=== PATIENT | female | born 1975 | race Two or more races ===

== ENCOUNTER 2016-07-25 05:57 | Inpatient (IN) | payer MEDICAID ==
[~2016-07-25 05:57] MED LIST: IV START KIT ONE; LACTATED RINGERS 1,000 ML ONE
[2016-07-25] MEDS ORDERED: CEFAZOLIN SODIUM 2 GRAM DUPLEX 2 G in Premix (D5W) 50 ml 1 EACH IV PRN (06:15)
[2016-07-25] MEDS ORDERED: LACTATED RINGERS 1,000 ML IV SCH ×2 (06:15→07:45)
[2016-07-25] MEDS ORDERED: LIDOCAINE 1% 2 ML VIAL ID PRN (06:15)
[2016-07-25] MEDS ORDERED: LIDOCAINE 1% (PRES FREE) 5 ML VIAL ONE (06:16)
[2016-07-25] MEDS ORDERED: CEFAZOLIN SODIUM 2 GRAM PREMIX 100 ML IV ONE (06:16)
[2016-07-25] MEDS ORDERED: MORPHINE SULFATE (DURAMORPH) 1 MG/ML 10ML AMP ONE (07:05)
[2016-07-25] MEDS ORDERED: MIDAZOLAM HCL 5 MG/5 ML VIAL ONE ×2 (07:05→07:20)
[2016-07-25] MEDS ORDERED: PROMETHAZINE HCL 25 MG/ML VIAL IM PRN (07:38)
[2016-07-25] MEDS ORDERED: LABETALOL HCL 5 MG/ML 20ML VIAL IV PRN (07:38)
[2016-07-25] MEDS ORDERED: MEPERIDINE 25 MG/ML SYRINGE IV PRN (07:38)
[2016-07-25] MEDS ORDERED: ATROPINE SULFATE 0.4 MG/1 ML VIAL IV PRN (07:38)
[2016-07-25] MEDS ORDERED: ONDANSETRON 4 MG/2ML 2 ML VIAL IV PRN (07:38)
[2016-07-25] MEDS ORDERED: MORPHINE SULFATE 4 MG/ML SYRINGE IV PRN ×3 (07:38→11:59)
[2016-07-25] MEDS ORDERED: NALOXONE HCL 0.4 MG/ML VIAL IV PRN ×3 (07:38→11:31)
[2016-07-25] MEDS ORDERED: KETOROLAC TROMETHAMINE 30 MG/ML 1 ML VIAL IV PRN ×2 (07:42→11:31)
[2016-07-25] MEDS ORDERED: OXYCODONE/ACETAMINOPHEN 5/325 MG TABLET PO PRN ×2 (07:42→11:31)
[2016-07-25] MEDS ORDERED: MORPHINE SULFATE 2 MG/ML SYRINGE IV PRN ×2 (07:42→11:31)
[2016-07-25] MEDS ORDERED: EPHEDRINE SULFATE 50 MG/ML 1ML VIAL IV PRN ×2 (07:42→11:31)
[2016-07-25] MEDS ORDERED: MORPHINE SULFATE 10 MG/ML SYRINGE IV PRN ×2 (07:49→12:00)
[2016-07-25] MEDS ORDERED: PROPOFOL 40 ML IV ONE (08:19)
[2016-07-25] MEDS ORDERED: SPINAL PROCEDURAL TRAY 1 EACH ONE (08:19)
[2016-07-25] MEDS ORDERED: FAMOTIDINE 10 MG/ML 2ML VIAL ONE (08:19)
[2016-07-25] MEDS ORDERED: METOCLOPRAMIDE HCL 5 MG/ML 2ML VIAL ONE (08:19)
[2016-07-25] MEDS ORDERED: BUPIVACAINE 0.75% SPINAL AMPUL 2 ML ONE (08:19)
[2016-07-25] MEDS ORDERED: DIPHENHYDRAMINE HCL 50 MG/1 ML VIAL ONE (08:19)
[2016-07-25] MEDS ORDERED: ONDANSETRON 4 MG/2ML 2 ML VIAL ONE (09:03)
[2016-07-25] MEDS ORDERED: MENTHOL/CETYLPYRD 1 EACH LOZENGE PO PRN (10:06)
[2016-07-25] MEDS ORDERED: MAGNESIUM HYDROXIDE/AL HYDROX 30 ML UDCUP PO PRN (10:06)
[2016-07-25] MEDS ORDERED: MAG HYDROX/AL HYDROX/SIMETH 30 ML UDCUP PO PRN (10:06)
[2016-07-25] MEDS ORDERED: ACETAMINOPHEN 325 MG TABLET PO PRN (10:06)
[2016-07-25] MEDS ORDERED: DOCUSATE SODIUM 100 MG CAPSULE PO PRN (10:06)
[2016-07-25] MEDS ORDERED: BLISTEX LIPSTICK 1 EACH TP PRN (10:06)
--- NOTE | 2016-07-25 10:07 | OP ---
Cheryl Francis DATE: 07/25/2016 SURGEON: Héctor Stoddard M.D. GROUP ACTIVITIES AIDE SURGEON: 00:10. PREOPERATIVE DIAGNOSES: Hypermenorrhea, leiomyoma's of the uterus, and iron deficiency anemia. POSTOPERATIVE DIAGNOSES: Hypermenorrhea, leiomyoma's of the uterus, and iron deficiency anemia. OPERATION: Total abdominal hysterectomy. ANESTHESIA: Spinal. FINDINGS: The uterus upper limits of normal size. The Fallopian tubes and ovaries appeared normal. There were changes in the tubes consistent with a previous tubal ligation. TECHNICAL PROCEDURE: After induction of satisfactory spinal anesthesia the patient was placed in the supine position and prepped and draped in the usual fashion. The abdomen was entered in the usual fashion through a pfannenstiel type incision. A Benjamin retractor was placed in the incision and the bowel was packed away with dry laparotomy towels. The right round ligament was identified, doubly clamped with Pean clamp, divided, and sutured ligated with 0 Vicryl. The vesicouterine peritoneum was incised from the right round ligament to the midline. The right uteroovarian ligament and Fallopian tube were then crossed clamped with a Gopi clamp, divided, and suture ligated with 0 Vicryl. The same procedure was repeated for the left adnexa. The bladder was pushed down in the midline using sharp and blunt dissection. The bladder was fairly adherent to the lower uterine segment and cervix due to scarring from her previous sections. The right uterine artery was skeletonized, doubly clamped with Pean clamps, divided, and sutured ligated with 0 Vicryl. The same procedure was repeated on the left. The left cardinal ligament was clamped with a straight Marilou clamp, divided, and suture ligated with 0 Vicryl. The same procedure was repeated on the right. Using the heavy Borrego scissors the cervix was shelled out at the pubocervical fascia using sharp dissection. The vaginal cuff was entered at the right angle and then incised circumferentially at this level using the Catherine scissors. The angles of the cuff were tagged with long Allis forceps and suture ligated with 0 Vicryl. The cuff was then closed from front to back using interrupted figure of eight sutures of 0 Vicryl. There was a lot of oozing from the underside of the bladder where it had been dissected off of the lower uterine segment and cervix, this was managed using electrocautery and sutures of 3-0 Vicryl. Some further bleeding was noted from the left infundibulopelvic ligament area, this was likewise controlled using a suture of 3-0 Vicryl. When hemostasis was assured the laparotomy towels and retractor were removed from the abdomen and the abdomen was closed. Peritoneum was closed with a continuous stitch of 2-0 Vicryl. The fascia was closed with a simple stitch of 0 Vicryl in the midline followed by continuous loop suture of 0 PDS and finally the skin was closed with mandy. The patient tolerated the procedure well and left the operating room awake and in good condition. There were no complications. Instrument, needle, and sponge counts were correct. Estimated blood loss was 400 mL. There was no blood replacement. JOB: [id number]
[2016-07-25] MEDS ORDERED: HYDROMORPHONE HCL 0.5 MG/0.5 ML SYRINGE ONE (10:59)
[2016-07-25] MEDS ORDERED: INSULIN REGULAR HUMAN (DOSE) 100 UNITS/1 ML SUB-Q SCH (11:00)
[2016-07-25] MEDS ORDERED: PUMP TUBING ONE (11:20)
[2016-07-25] MEDS: KETOROLAC TROMETHAMINE 30 MG/ML 1 ML VIAL IV SCH ×2 (11:25→19:02)
[2016-07-25] MEDS: D5 1/4NS with 20 mEq KCL 1,000 ML IV SCH ×2 (11:25→19:19)
[2016-07-25 11:30] VITALS: BMI 29.7
[2016-07-25] MEDS: DIPHENHYDRAMINE HCL 50 MG/1 ML VIAL IV PRN (14:59)
[2016-07-25] MEDS: INSULIN REGULAR HUMAN (DOSE) 100 UNITS/1 ML SUB-Q SCH (16:24)
[2016-07-25] MEDS: METFORMIN HCL 500 MG TABLET PO SCH (18:41)
[2016-07-25] MEDS: INSULIN GLARGINE (DOSE) 100 UNITS/ML UNIT SUB-Q SCH (20:50)
[2016-07-26] MEDS: KETOROLAC TROMETHAMINE 30 MG/ML 1 ML VIAL IV SCH ×5 (00:52→23:06)
[2016-07-26] MEDS: DIPHENHYDRAMINE HCL 50 MG/1 ML VIAL IV PRN (00:56)
[2016-07-26] MEDS: D5 1/4NS with 20 mEq KCL 1,000 ML IV SCH (03:05)
[2016-07-26 06:56] LABS: HEMATOCRIT 23.3 % (37.0-47.0); HEMOGLOBIN 7.1 gm/l (12.0-16.0)
[2016-07-26] MEDS: METFORMIN HCL 500 MG TABLET PO SCH ×2 (08:20→17:38)
[2016-07-26] MEDS: INSULIN REGULAR HUMAN (DOSE) 100 UNITS/1 ML SUB-Q SCH ×3 (08:20→17:40)
[2016-07-26] MEDS: OXYCODONE HCL 5 MG TABLET PO PRN ×2 (08:45→17:39)
--- NOTE | 2016-07-26 08:59 | PDOC43 ---
- Subjective Subjective: Reports Pain Tolerable, Reports Tolerating PO Clear, Reports Other ( hasn't passed flatus yet), Denies Flatus, Denies Nausea, Denies Vomiting, Denies Fever - Objective Vital Signs Temperature 98.8 F 07/26/16 07:31 Pulse Rate 88 07/26/16 07:31 Respiratory Rate 16 07/26/16 07:31 Blood Pressure 92/62 07/26/16 07:31 O2 Saturation by Pulse Oximetry 95 07/26/16 07:31 Oxygen Delivery Method Room Air Oxygen Flow Rate 0 Laboratory 07/26/16 05:30 07/26/16 07/25/16 07/25/16 07:49 20:45 15:01 POC Capillary Glucose 241 H 247 H 247 H 07/25/16 09:51 POC Capillary Glucose 204 H Active Medication Orders Category Date Time Status Acetaminophen [Tylenol] Med 07/25/16 10:06 Active 325 - 650 mg PO Q4H PRN Diphenhydramine HCl [Benadryl] Med 07/25/16 10:06 Active 25 mg IV Q6H PRN Docusate Sodium [Colace] Med 07/25/16 10:06 Active 100 mg PO BID PRN Ephedrine Sulfate Med 07/25/16 11:31 Active 5 - 10 mg IV Q5M PRN Hydromorphone HCl [Dilaudid] Med 07/26/16 09:19 Active 1 - 2 mg IV Q2H PRN Insulin Glargine (Dose) [Lantus (Dose)] Med 07/25/16 20:00 Active 40 units SUB-Q Q24H Insulin Regular Human (Dose) [Novolin R (Dose)] Med 07/25/16 16:00 Active 10 units SUB-Q AC Ketorolac Tromethamine [Toradol] Med 07/25/16 11:15 Active 30 mg IV Q6H Lip Camino [Blistex] Med 07/25/16 10:06 Active 1 each TP PRN PRN Magnesium Hydroxide/Al Hydrox [Maalox] Med 07/25/16 10:06 Active 30 ml PO Q4H PRN Magnesium/Al Hydrox/Simeth [Maalox Plus] Med 07/25/16 10:06 Active 30 ml PO Q4H PRN Menthol/Cetylpyridinium [Cepacol] Med 07/25/16 10:06 Active 1 each PO PRN PRN Metformin HCl [Glucophage] Med 07/25/16 17:00 Active 1,000 mg PO BIDWM Morphine Sulfate Med 07/25/16 11:31 Active 1 - 5 mg IV Q1H PRN Morphine Sulfate Med 07/25/16 11:59 Active 1 - 5 mg IV Q1H PRN Morphine Sulfate Med 07/25/16 12:00 Active 1 - 5 mg IV Q1H PRN Naloxone HCl [Narcan] Med 07/25/16 11:31 Active 0.04 - 0.4 mg IV Q5M PRN Ondansetron 4 mg/2ml Vial [Zofran] Med 07/25/16 10:06 Active 4 mg IV Q4H PRN Oxycodone HCl [Roxicodone] Med 07/26/16 09:19 Active 5 - 10 mg PO Q3H PRN Oxycodone HCl/Acetaminophen [Percocet 5/325] Med 07/25/16 11:31 Active 1 - 2 tab PO Q4H PRN Sodium Chloride 0.9% Flush [Normal Saline 10ml Flush] Med 07/25/16 10:06 Active 10 - 50 ml IV PRN PRN Sodium Chloride 0.9% Flush [Normal Saline 10ml Flush] Med 07/25/16 17:00 Active 10 ml IV Q8HR Intake and Output 07/24/16 07/25/16 07/26/16 23:59 23:59 23:59 Intake Total 1038 1731 Output Total 200 2325 Balance 838 -594 General: Afebrile, No Acute Distress Lungs: Clear to Auscultation Bilaterally, Normal Air Movement Cardiovascular: Regular Rate and Rhythm, Normal S1, Normal S2 Abdomen: Soft, Non-Distended, Normal Bowel Sounds, Other (hasn't passed flatus yet, no bowel movement yet), No Tenderness Wound MEDICAL MANAGER: Dressing in Place, Dressing Clean/Dry/Intact Genitourinary: Indwelling Urinary Cath, Other (clear yellow urine) Extremities: No Tenderness Psych/Mental Status: Normal Affect, Normal Mood - Disposition: Disposition: Stable (d/c lew)
[2016-07-26] MEDS ORDERED: HYDROMORPHONE HCL 1 MG/ML SYRINGE IV PRN (09:19)
[2016-07-26] MEDS: ONDANSETRON 4 MG/2ML 2 ML VIAL IV PRN (16:57)
[2016-07-26] MEDS: INSULIN GLARGINE (DOSE) 100 UNITS/ML UNIT SUB-Q SCH (20:57)
[2016-07-27] MEDS: KETOROLAC TROMETHAMINE 30 MG/ML 1 ML VIAL IV SCH ×2 (04:49→12:56)
[2016-07-27] MEDS: INSULIN REGULAR HUMAN (DOSE) 100 UNITS/1 ML SUB-Q SCH ×2 (09:53→12:53)
[2016-07-27] MEDS: METFORMIN HCL 500 MG TABLET PO SCH (09:53)
--- NOTE | 2016-07-27 11:03 | PDOC5 ---
Hospital Course: ADMIT DATE: 07/25/16 DISCHARGE DATE: 07/27/16 ADMISSION DIAGNOSES: hypermenorrhea, leoimyoma uterii, anemia PROCEDURES: total abdominal hysterectomy HISTORY OF PRESENT ILLNESS: 41 year old presenting with fibroid uterus, history of anemia, and hypermenorrhea for total abdominal hysterectomy HOSPITAL COURSE: The patient had an uneventful post operative course, tolerating solid foods. Will be discharged after flatus passed By day of discharge the patient is ambulating, eating, voiding, without difficulty. Pain is controlled. - Objective General: Afebrile, No Acute Distress Lungs: No Clear to Auscultation Bilaterally, No Normal Air Movement Cardiovascular: Regular Rate and Rhythm, Normal S1, Normal S2 Abdomen: Soft, Non-Distended, Normal Bowel Sounds, Other (hasn't passed flatus yet or had a bowel movement yet. will be discharged after flatus passed), No Tenderness Wound BALLOON ARTIST: Dressing in Place, Dressing Clean/Dry/Intact, Well Approximated, Other (suture line intact), No Drainage, No Erythema, No Edema Genitourinary: Other (voiding without difficulty.) Extremities: No Tenderness Psych/Mental Status: Normal Affect, Normal Mood - Discharge Plan Condition: Stable Disposition: Home Additional Instructions: nothing in vagina and no heavy lifting x [address] a car in one week. continue to monitor blood glucose and take home meds as previously. analgesics as needed. discharge only after flatus passed. office visit with dr bland in 4 days Prescriptions: Ibuprofen [Motrin] 800 mg PO Q8H PRN #30 tablet PRN Reason: Pain FERROUS SULFATE (65 Fe) [IRON FERROUS SULFATE 325 MG TABLET (SHF)] 325 mg PO DAILY #30 tab Oxycodone HCl/Acetaminophen [PERCOCET 5/325 MG TABLET (SHF)] 1 - 2 tab PO Q4H PRN #14 tablet PRN Reason: Pain (Moderate) Follow-Up: Héctor Stoddard MD [Staff Physician] -
[2016-07-27] MEDS ORDERED: IBUPROFEN 800 MG TABLET PO PRN (11:34)
[2016-07-27] MEDS: ONDANSETRON 4 MG/2ML 2 ML VIAL IV PRN (11:55)
[2016-07-27 12:18] VITALS: BP 104/65
[2016-07-27] MEDS: OXYCODONE HCL 5 MG TABLET PO PRN ×2 (15:01→15:06)
== END 2016-07-27 16:00 | disposition home or self-care (01) | DRG 742 ==
LOC: OR 05:57 → MS 10:24
PROVIDERS: ADMIT Obstetrics & Gynecology; ATTEND Obstetrics & Gynecology
PROC: 0UT90ZZ Resection of Uterus, Open Approach (ICD-10-PCS; principal; 2016-07-25)
PROC: 0UTC0ZZ Resection of Cervix, Open Approach (ICD-10-PCS; 2016-07-25)
DX: N92.0 Excessive and frequent menstruation with regular cycle (principal); D62 Acute posthemorrhagic anemia; D25.9 Leiomyoma of uterus, unspecified; D50.9 Iron deficiency anemia, unspecified

== ENCOUNTER 2016-08-07 21:11 | Emergency (ER) | payer MEDICAID ==
--- NOTE | 2016-08-08 07:05 | RAD ---
CHEST - 2 VIEWS COMPARISON: Portable chest x-ray, 12/29/2012 HISTORY: Hysterectomy on 07/25/2016. Cough and fever for 2 days. FINDINGS: Views: Frontal and lateral chest Lungs: Normal Heart and vessels: Normal Trachea and bronchi: Normal Mediastinum and noe: Normal Costophrenic sulci: Normal Chest wall and bones: Normal. Upper abdomen: Normal. IMPRESSION: Negative 2 view chest.
== END 2016-08-07 22:49 | disposition home or self-care (01) ==
LOC: ED 21:11
DX: R05 Cough (principal); E11.9 Type 2 diabetes mellitus without complications; Z79.4 Long term (current) use of insulin